=== PATIENT | male | born 1945 | race Caucasian/White ===

== ENCOUNTER 2018-12-22 19:36 | Inpatient (IN) | payer OTHER ==
[~2018-12-22] VITALS: Ht 167.6 cm; Wt 74.8 kg
[~2018-12-22 19:36] MED LIST: COUMADIN3 MG PO; LEVOTHYROXIN0.025 M2 PO; LISINOPRIL40 MG PO; METOPROLOL SUCC50 M2 PO; SIMVASTATIN40 M1 PO; TERAZOSIN HCL5 MG PO
[2018-12-22 19:48] VITALS: Ht 167.6 cm; Wt 74.8 kg
[2018-12-22 20:11] LABS: BASOPHIL % 0.3 % (0-2); PLATELET COUNT 238 x10^3mcL (130-400); RED CELL DISTRIBUTION WIDTH 16.4 % (11.5-14.5)
[2018-12-22 20:26] LABS: CALCIUM 8.2 mg/dL (8.5-10.1); CREATININE SERUM 1.3 mg/dL (0.7-1.3); POTASSIUM SERUM 3.6 mmol/L (3.5-5.1)
[2018-12-22 20:32] LABS: BILIRUBIN TOTAL 1.07 mg/dL (0.20-1.00); TOTAL PROTEIN, SERUM 6.9 g/dL (6.4-8.2)
[2018-12-22 20:33] LABS: ALBUMIN 2.8 g/dL (3.4-5.0)
[2018-12-22 22:40] VITALS: BP 189/123
[2018-12-22 22:40] LABS: MAGNESIUM 2.1 mg/dL (1.8-2.4)
[2018-12-22 22:41] LABS: CHOLESTEROL/HDL RATIO 2.5
[2018-12-23] VITALS (7 sets, daily range): BP systolic 160–189; BP diastolic 88–119
[2018-12-23 05:47] LABS: CALCIUM 8.1 mg/dL (8.5-10.1); CARBON DIOXIDE 28.2 mmol/L (21-32); CHLORIDE SERUM 109 mmol/L (98-107); CREATININE SERUM 1.2 mg/dL (0.7-1.3); GFR1 > 60 mL/min; GLUCOSE SERUM 107 mg/dL (74-106); POTASSIUM SERUM 3.7 mmol/L (3.5-5.1); SODIUM SERUM 146 mmol/L (136-145)
[2018-12-23 07:01] LABS: BASOPHIL % 0.1 % (0-2); PLATELET COUNT 235 x10^3mcL (130-400)
[2018-12-23 07:24] LABS: RED CELL DISTRIBUTION WIDTH 16.7 % (11.5-14.5)
[2018-12-23 21:46] LABS: AMPHETAMINE QUAL UR NONE DETECTED (See below)
[2018-12-23 22:04] LABS: UA SPECIFIC GRAVITY 1.015 (1.005-1.035); microscopic required? YES; urine erythrocyte TRACE (NEGATIVE)
[2018-12-24 02:10] VITALS: BP 176/94
[2018-12-24 05:58] VITALS: BP 146/82
[2018-12-24 09:36] VITALS: BP 173/87
[2018-12-24 12:44] VITALS: BP 126/75
[2018-12-24 16:37] VITALS: BP 114/72
[2018-12-24 21:27] VITALS: BP 136/58
[2018-12-25 05:57] VITALS: BP 156/79
[2018-12-25 06:47] LABS: CALCIUM 8.8 mg/dL (8.5-10.1); CARBON DIOXIDE 29.5 mmol/L (21-32); CREATININE SERUM 1.4 mg/dL (0.7-1.3); POTASSIUM SERUM 3.6 mmol/L (3.5-5.1)
[2018-12-25 07:58] LABS: PLATELET COUNT 254 x10^3mcL (130-400)
[2018-12-25 07:59] LABS: BASOPHIL % 0 % (0-2); RED CELL DISTRIBUTION WIDTH 16.7 % (11.5-14.5)
[2018-12-25 09:40] VITALS: BP 163/96
[2018-12-25 11:13] VITALS: BP 133/76
== END 2018-12-25 12:59 | disposition other institution (70) | DRG 177 ==
LOC: ED 19:36 → DU 22:32
PROVIDERS: Emergency Medicine; ADMIT Internal Medicine
DX: J69.0 Pneumonitis due to inhalation of food and vomit (principal); J96.21 Acute and chronic respiratory failure with hypoxia; J44.1 Chronic obstructive pulmonary disease with (acute) exacerbation; J45.901 Unspecified asthma with (acute) exacerbation; E86.0 Dehydration; I48.91 Unspecified atrial fibrillation; I10 Essential (primary) hypertension; E03.9 Hypothyroidism, unspecified; N40.0 Benign prostatic hyperplasia without lower urinary tract symptoms; E78.00 Pure hypercholesterolemia, unspecified; I25.10 Atherosclerotic heart disease of native coronary artery without angina pectoris; Z95.5 Presence of coronary angioplasty implant and graft; Z86.73 Personal history of transient ischemic attack (TIA), and cerebral infarction without residual deficits
CPT/HCPCS: 36600; 83880; 87804; A9500; J0456; J0696; J2543; J2785; J2920; J3490; J7030; J7050; J7613; J7620; J7626; Q0092